=== PATIENT | male | born 1975 | race Caucasian/White ===

== ENCOUNTER → 2023-03-25 13:21 | Outpatient (BNVA) | payer OTHER, SELFPAY | PROVIDERS: Visit Provider Nurse Practitioner Family | DX: L92.3 Foreign body granuloma of the skin and subcutaneous tissue (principal); L21.8 Other seborrheic dermatitis; L02.223 Furuncle of chest wall; L02.222 Furuncle of back [any part, except buttock and flank]; L57.8 Other skin changes due to chronic exposure to nonionizing radiation; D22.4 Melanocytic nevi of scalp and neck; L81.4 Other melanin hyperpigmentation | CPT/HCPCS: 99204 ==

== ENCOUNTER → 2023-04-01 13:53 | Outpatient (BNVA) | payer OTHER, SELFPAY | PROVIDERS: Referring Provider Nurse Practitioner; Visit Provider Surgery | DX: K42.9 Umbilical hernia without obstruction or gangrene (principal); K43.9 Ventral hernia without obstruction or gangrene | CPT/HCPCS: 99203 ==

== ENCOUNTER → 2023-04-07 09:46 | Outpatient (BNVA) | payer OTHER, SELFPAY | PROVIDERS: Visit Provider Dermatology | DX: L81.9 Disorder of pigmentation, unspecified (principal) | CPT/HCPCS: 11602; 12032 ==

== ENCOUNTER 2023-04-23 11:53 | Outpatient (CLI) | payer OTHER, SELFPAY ==
[2023-04-23] MEDS: iohexol 350 mg/mL 500 mL Btl (per mL) PO (12:14)
--- NOTE | 2023-04-23 13:00 | CTR_ITS ---
PROCEDURE INFORMATION: Exam: CT Abdomen And Pelvis With Contrast Exam date and time: 04/23/2023 1:01 PM Age: 47 years old Clinical indication: Other: Ventral hernia, iv/po; Prior surgery; Surgery date: 6+ months; Surgery type: Lspine x15 yrs TECHNIQUE: Imaging protocol: Computed tomography of the abdomen and pelvis with contrast. Radiation optimization: All CT scans at this facility use at least one of these dose optimization techniques: automated exposure control; mA and/or kV adjustment per patient size (includes targeted exams where dose is matched to clinical indication); or iterative reconstruction. Contrast material: OMNIPAQUE; Contrast volume: 95 ml; Contrast route: INTRAVENOUS (IV); COMPARISON: No relevant prior studies available. RADIATION DOSE METRICS: Total DLP (mGy-cm): 765.23 FINDINGS: Lungs: Imaged portions of the lung bases demonstrate minimal scarring and/or atelectasis. Liver: Unremarkable. Gallbladder and bile ducts: Gallbladder is unremarkable. No extrahepatic biliary ductal dilatation for age. Pancreas: Unremarkable. Spleen: Unremarkable. Adrenal glands: Not enlarged. Kidneys and ureters: No hydronephrosis. Stomach and bowel: No bowel obstruction identified. No herniated bowel. Appendix: No acute inflammatory change of the appendix identified. Intraperitoneal space: No significant volume of free fluid identified. Vasculature: atherosclerotic calcification present in major vasculature without abdominal aortic aneurysm. Lymph nodes: No adenopathy noted. Urinary bladder: Unremarkable as visualized. Reproductive: Unremarkable as visualized. Bones/joints: Previous L5-S1 posterior fusion with hardware. Soft tissues: A left paraumbilical hernia is present containing fat. The herniated fat measures approximately 3.3 cm and is moderately edematous. Immediately superior to this is an additional focus of ventral herniated fat without edema. CT/CT abdomen pelvis w con* [id number] IMPRESSION: 1. Left paraumbilical fat containing hernia with edema of the herniated fat without herniated bowel. Immediately superior to this is an additional ventral hernia, also containing fat without evidence of edema or bowel herniation.
[2023-04-23] MEDS: iohexol 350 mg/mL 500 mL Btl (per mL) IV (13:05)
== END 2023-04-23 11:54 | disposition home or self-care (01) ==
LOC: RAD 11:55
PROVIDERS: Visit Provider Surgery
DX: K43.9 Ventral hernia without obstruction or gangrene (principal)
CPT/HCPCS: 74177; Q9967

== ENCOUNTER → 2023-05-05 13:48 | Outpatient (BNVA) | payer OTHER, SELFPAY | PROVIDERS: Visit Provider Surgery | DX: Z09 Encounter for follow-up examination after completed treatment for conditions other than malignant neoplasm (principal); K43.9 Ventral hernia without obstruction or gangrene | CPT/HCPCS: 99214 ==

== ENCOUNTER → 2024-03-30 13:11 | Outpatient (BNVA) | payer OTHER, SELFPAY | PROVIDERS: Visit Provider Nurse Practitioner Family | DX: L21.8 Other seborrheic dermatitis (principal); L57.8 Other skin changes due to chronic exposure to nonionizing radiation; D22.4 Melanocytic nevi of scalp and neck; L81.4 Other melanin hyperpigmentation; L85.3 Xerosis cutis | CPT/HCPCS: 99213 ==

== ENCOUNTER 2024-06-20 14:02 | Outpatient (CLI) | payer OTHER, SELFPAY ==
[2024-06-20 14:41] LABS: Basophils % 0.6 %; Eosinophils # 0.1 10^3/uL (0.0-0.8); Eosinophils % 2.6 %; Hematocrit 40.5 % (37-53); Lymphocytes # 1.8 10^3/uL (0.8-4.8); Lymphocytes % 38.5 %; Mean Corpuscular HGB Conc 33.6 g/dL (30-55); Mean Corpuscular Hemoglobin 30.6 pg (27-33); Mean Corpuscular Volume 91.2 fl (82-101); Mean Platelet Volume 9.7 fL (7.4-10.4); Monocytes # 0.4 10^3/uL (0.2-0.9); Monocytes % 8.2 %; Neutrophils # 2.29 10^3/uL (1.8-7.7); Neutrophils % 49.7 %; Nucleated Red Blood Cells % 0 %; Platelet Count 159 10^3/cmm (157-399); Red Blood Count 4.44 10^6/uL (3.85-5.65); White Blood Count 4.62 10^3/uL (3.29-11.43)
[2024-06-20 14:55] LABS: Alanine Aminotransferase 27 U/L (0-41); Albumin Level 4.5 g/dL (3.5-5.2); Alkaline Phosphatase 85 U/L (40-130); Anion Gap 15.2 (5-19); Aspartate Amino Transferase 20 U/L (0-40); Blood Urea Nitrogen 14 mg/dL (6-20); C Reactive Protein 6.6 mg/L (0.0-4.9); Calcium 8.8 mg/dL (8.5-10.5); Carbon Dioxide 27 mmol/L (22-29); Chloride 103 mmol/L (98-107); Globulin 2.4 g/dL (1.3-4.6); Glomerular Filtration Rate 103.2 mL/min (90-130); Glucose 106 mg/dL (65-115); Osmolality Calculated 293 mOsm/kg (285-295); Potassium 4.2 mmol/L (3.5-5.1); Sodium 141 mmol/L (136-145); Total Bilirubin 0.4 mg/dL (0.15-1.2); Total Protein 6.9 g/dL (6.6-8.7)
== END 2024-06-20 14:03 | disposition home or self-care (01) ==
LOC: LAB 14:07
PROVIDERS: Visit Provider Surgery
DX: K52.9 Noninfective gastroenteritis and colitis, unspecified (principal); Z09 Encounter for follow-up examination after completed treatment for conditions other than malignant neoplasm
CPT/HCPCS: 36415; 80053; 85025; 86140; 99213

== ENCOUNTER 2024-06-22 13:42 | Outpatient (CLI) | payer OTHER, SELFPAY | END 2024-06-22 13:43 | disposition home or self-care (01) | LOC: LAB 13:43 | PROVIDERS: Visit Provider Surgery | DX: K52.9 Noninfective gastroenteritis and colitis, unspecified (principal) | CPT/HCPCS: 83630; 83993; 87045; 87177; 87209; 87427; 87449 ==

== ENCOUNTER → 2024-08-15 14:13 | Outpatient (BNVA) | payer OTHER, SELFPAY | PROVIDERS: Visit Provider Surgery | DX: K52.9 Noninfective gastroenteritis and colitis, unspecified (principal) | CPT/HCPCS: 99212 ==

== ENCOUNTER → 2024-12-12 13:10 | Outpatient (BNVA) | payer OTHER, SELFPAY | PROVIDERS: PCP Nurse Practitioner; Visit Provider Orthopaedic Surgery | DX: M19.011 Primary osteoarthritis, right shoulder (principal) | CPT/HCPCS: 20610; 99204; J3301; J3490; J9999 ==

== ENCOUNTER → 2025-01-16 13:42 | Outpatient (BNVA) | payer OTHER, SELFPAY | PROVIDERS: PCP Nurse Practitioner; Visit Provider Orthopaedic Surgery | DX: M25.511 Pain in right shoulder (principal); G89.29 Other chronic pain | CPT/HCPCS: 99213 ==

== ENCOUNTER 2025-02-28 13:51 | Outpatient (RCR) | payer OTHER, SELFPAY | END 2025-02-28 23:59 | disposition home or self-care (01) | LOC: SPT 13:51 | PROVIDERS: PCP Nurse Practitioner; Visit Provider Orthopaedic Surgery | DX: M25.511 Pain in right shoulder (principal); M75.101 Unspecified rotator cuff tear or rupture of right shoulder, not specified as traumatic | CPT/HCPCS: 97110; 97112; 97140; 97161 ==